=== PATIENT | female | born 1945 | race Caucasian/White ===

== ENCOUNTER 2018-03-14 11:05 | Inpatient (IN) | payer MEDICARE, OTHER ==
[2018-03-14 11:46] LABS: WHITE BLOOD COUNT 8.8 10^3/ul (4.8-10.8)
[2018-03-14 11:46] LABS: HEMATOCRIT 36.9 % (37.0-47.0); HEMOGLOBIN 11.3 g/dl (12.0-16.0); MEAN CORPUSCULAR HEMOGLOBIN 28.8 pg (29.0-33.0); MEAN CORPUSCULAR HGB CONC 30.6 g/dl (32.0-37.0); MEAN CORPUSCULAR VOLUME 93.9 fl (82.0-101.0); MEAN PLATELET VOLUME 10.8 fl (7.4-10.4); PLATELET COUNT 298 10^3/UL (140-415); POSITIVE DIFF @See below; RED BLOOD COUNT 3.93 10^6/ul (4.20-5.40); RED CELL DISTRIBUTION WIDTH 14.6 % (11.5-14.5)
[2018-03-14 11:47] LABS: ADD MAN DIFF? YES
[2018-03-14] MEDS: CEFTRIAXONE 1 GM/50 ML (PMX) 50 ML IVPB (11:49)
[2018-03-14] MEDS: DEXAMETHASONE 10 MG/ML 1 ML INJ IV (11:49)
[2018-03-14] MEDS: ALBUTEROL 0.083% (NEB) 2.5 MG/3 ML AMP INH (11:51)
[2018-03-14] MEDS: IPRATROPIUM (NEB) 0.5 MG/2.5 ML AMP INH (11:51)
[2018-03-14] MEDS: AZITHROMYCIN 500MG/NS (PMX) 250 ML IV (12:03)
[2018-03-14] MEDS: SODIUM CHLORIDE 0.9% 1L BAG IV* (12:04)
[2018-03-14 12:06] LABS: ALANINE AMINOTRANSFERASE 19 IU/L (13-69); ALBUMIN 3.7 g/dl (3.3-4.9); ALKALINE PHOSPHATASE 83 IU/L (42-121); ANION GAP 9 (5-13); ASPARTATE AMINO TRANSFERASE 29 IU/L (15-46); BILIRUBIN,INDIRECT 0.2 mg/dl (0-1.1); BILIRUBIN,TOTAL 0.2 mg/dl (0.2-1.3); BLOOD UREA NITROGEN 21 mg/dl (7-20); CALCIUM 8.8 mg/dl (8.4-10.2); CARBON DIOXIDE 34 mmol/L (21-31); CHLORIDE 98 mmol/L (97-110); GLUCOSE 97 mg/dl (70-220); POTASSIUM 3.9 mmol/L (3.5-5.1); SODIUM 141 mmol/L (135-144); TOTAL PROTEIN 7.8 g/dl (6.1-8.1)
[2018-03-14 12:07] LABS: PROTIME 12.2 Sec (11.9-14.9)
[2018-03-14 12:08] LABS: PARTIAL THROMBOPLASTIN TIME 24.7 Sec (23.0-35.0)
[2018-03-14 12:09] LABS: ANISOCYTOSIS 1+ (0-0); BASOPHIL #M 0.1 10^3/ul (0.0-0.0); BASOPHILS % (M) 2 % (0-2); EOSINOPHILS % (M) 1 % (0-7); ERYTHROBLAST% (NRBC) (M) 1 % (0-0); LYMPHOCYTES #M 1.9 10^3/ul (0.8-2.9); LYMPHOCYTES % (M) 22 % (15-51); MONOCYTE #M 0.8 10^3/ul (0.3-0.9); MONOCYTES % (M) 10 % (0-11); PLATELET ESTIMATE NORMAL; POLYCHROMASIA 2+ (0-0); SEGMENTED NEUTROPHILS (M) % 65 % (39-77); SMUDGE%M 28 % (0-0)
[2018-03-14 12:15] LABS: MODE MASK - NRB; MetHgb Venous 0.3 %; Sample Type Blood venous; Site VENOUS LINE; Venous COHb 6.7 %; Venous Fraction OxyHgb 57.3 %; Venous Oxygen Sat 61.6 mmHG (55.0-75.0); Venous Total Hemglobin 14.6 g/dl
[2018-03-14 12:17] LABS: B-TYPE NATRIURETIC PEPTIDE 1800 PG/ML (0-125); TROPONIN-I 0.022 ng/ml (0.000-0.120)
[2018-03-14] MEDS ORDERED: ONDANSETRON 4 MG INJ IV ×2 (13:00→14:00)
[2018-03-14] MEDS ORDERED: ACETAMINOPHEN 325 MG TAB PO ×2 (13:00→14:00)
[2018-03-14] MEDS ORDERED: NACL 0.9% 3 ML SYG IV (14:00)
[2018-03-14] MEDS: NICOTINE (21 MG/24 HR) PATCH TRANSDERM (15:30)
[2018-03-14] MEDS: predniSONE 20 MG TAB PO (15:44)
[2018-03-14] MEDS: FUROSEMIDE 40 MG INJ IV (17:48)
[2018-03-14 19:57] LABS: AADO2 Arterial 564.5 mmHg (7.0-24.0); Allen Test ACCEPTAB; Arterial Base Excess -1.5 mmol/L (-3.0-3); Arterial Blood Gas Oxygen Sat 90.9 mmHG (95.0-100.0); Arterial COHb 2.1 % (0.0-3.0); Arterial Fraction of Oxyhgb 88.8 % (93.0-99.0); Arterial HCO3 28.4 mmol/L (22.0-26.0); Arterial MetHb 0.2 % (0.0-1.5); Arterial pCO2 75.5 mmhg (35-45); MODE MASK - NRB; Site Right Radial
[2018-03-14] MEDS: ATORVASTATIN 10 MG TAB PO (21:06)
[2018-03-14] MEDS: RISPERIDONE 1 MG TAB PO (21:06)
[2018-03-14 23:41] LABS: AADO2 Arterial 388.3 mmHg (7.0-24.0); Allen Test ACCEPTAB; Arterial Base Excess 2.7 mmol/L (-3.0-3); Arterial Blood Gas Oxygen Sat 91.4 mmHG (95.0-100.0); Arterial COHb 1.3 % (0.0-3.0); Arterial Fraction of Oxyhgb 89.9 % (93.0-99.0); Arterial HCO3 31.9 mmol/L (22.0-26.0); Arterial MetHb 0.3 % (0.0-1.5); Arterial pCO2 74.3 mmhg (35-45); Blood Gas IEPAP 15/5; MODE MASK - BIPAP; Site Right Radial
[2018-03-15] MEDS: FUROSEMIDE 40 MG INJ IV ×2 (06:29→17:20)
[2018-03-15 07:13] LABS: HEMATOCRIT 35.4 % (37.0-47.0); HEMOGLOBIN 10.6 g/dl (12.0-16.0); MEAN CORPUSCULAR HEMOGLOBIN 28.6 pg (29.0-33.0); MEAN CORPUSCULAR HGB CONC 29.9 g/dl (32.0-37.0); MEAN CORPUSCULAR VOLUME 95.7 fl (82.0-101.0); MEAN PLATELET VOLUME 10.7 fl (7.4-10.4); PLATELET COUNT 273 10^3/UL (140-415); RED CELL DISTRIBUTION WIDTH 14.7 % (11.5-14.5)
[2018-03-15 07:15] LABS: ADD MAN DIFF? YES; POSITIVE DIFF @See below
[2018-03-15 07:47] LABS: ALANINE AMINOTRANSFERASE 27 IU/L (13-69); ALBUMIN 3.7 g/dl (3.3-4.9); ALBUMIN/GLOBULIN RATIO 1.08; ALKALINE PHOSPHATASE 75 IU/L (42-121); ANION GAP 9 (5-13); ASPARTATE AMINO TRANSFERASE 23 IU/L (15-46); BILIRUBIN,INDIRECT 0.1 mg/dl (0-1.1); BILIRUBIN,TOTAL 0.1 mg/dl (0.2-1.3); BLOOD UREA NITROGEN 25 mg/dl (7-20); CALCIUM 8.7 mg/dl (8.4-10.2); CARBON DIOXIDE 33 mmol/L (21-31); CHLORIDE 99 mmol/L (97-110); CHOL/HDL RATIO 2.6 RATIO; CHOLESTEROL 161 mg/dl (100-200); CREATININE 0.75 mg/dl (0.44-1.00); GLUCOSE 132 mg/dl (70-220); HDL CHOLESTEROL 61 mg/dl (33-92); LDL CHOLESTEROL,CALCULATED 89 mg/dl; MAGNESIUM 2.3 mg/dl (1.7-2.5); PHOSPHORUS 4.7 mg/dl (2.5-4.9); POTASSIUM 4.6 mmol/L (3.5-5.1); SODIUM 141 mmol/L (135-144); TOTAL PROTEIN 7.1 g/dl (6.1-8.1); TRIGLYCERIDES 55 mg/dl (0-149)
[2018-03-15 07:49] LABS: HEMOGLOBIN A1C 5.4 % (0-5.9)
[2018-03-15] MEDS: NICOTINE (21 MG/24 HR) PATCH TRANSDERM (09:00)
[2018-03-15] MEDS ORDERED: NON-FORMULARY/PATIENT OWN MED (Losartan-Hydrochlorothiazide (Losartan-HCTZ) 1 TAB) PO (09:00)
[2018-03-15 09:06] LABS: LYMPHOCYTES #M 0.8 10^3/ul (0.8-2.9); LYMPHOCYTES % (M) 11 % (15-51); MONOCYTE #M 0.5 10^3/ul (0.3-0.9); MONOCYTES % (M) 7 % (0-11); PLATELET ESTIMATE NORMAL; POLYCHROMASIA 2+ (0-0); REACTIVE LYMPHOCYTES #M 0.1 10^3/ul (0.0-0.0); REACTIVE LYMPHOCYTES% (M) 2 % (0-0); SEGMENTED NEUTROPHILS (M) % 80 % (39-77); SMUDGE%M 31 % (0-0)
[2018-03-15] MEDS: LOSARTAN 50 MG TAB PO (09:16)
[2018-03-15] MEDS: RISPERIDONE 1 MG TAB PO ×2 (09:17→21:52)
[2018-03-15] MEDS: HYDROCHLOROTHIAZIDE 12.5 MG CAP PO (09:17)
[2018-03-15] MEDS: AMLODIPINE 10 MG TAB PO (09:17)
[2018-03-15] MEDS: predniSONE 20 MG TAB PO (09:17)
[2018-03-15] MEDS: ENOXAPARIN 40 MG/0.4 ML SYG SC (09:34)
[2018-03-15] MEDS: ALBUTEROL/IPRATROPIUM (NEB) 3 ML AMP HHN ×4 (10:16→20:16)
[2018-03-15] MEDS: COLLAGENASE 5 GM (UD JAR) TOP (10:58)
[2018-03-15] MEDS: CEFTRIAXONE 1 GM/50 ML (PMX) 50 ML IVPB (10:59)
[2018-03-15] MEDS: AZITHROMYCIN 500MG/NS (PMX) 250 ML IVPB (11:49)
[2018-03-15 13:42] LABS: AADO2 Arterial 187.8 mmHg (7.0-24.0); Allen Test ACCEPTAB; Arterial Blood Gas Oxygen Sat 92.1 mmHG (95.0-100.0); Arterial COHb 0.6 % (0.0-3.0); Arterial Fraction of Oxyhgb 91.4 % (93.0-99.0); Arterial HCO3 29.9 mmol/L (22.0-26.0); Arterial MetHb 0.2 % (0.0-1.5); Arterial pCO2 56.6 mmhg (35-45); Blood Gas PS 20/5; MODE MASK - BIPAP; Site Right Brachial
[2018-03-15] MEDS: ATORVASTATIN 10 MG TAB PO (21:52)
[2018-03-16] MEDS: ALBUTEROL/IPRATROPIUM (NEB) 3 ML AMP HHN ×6 (01:33→20:00)
[2018-03-16] MEDS: FUROSEMIDE 40 MG INJ IV ×2 (05:53→18:00)
[2018-03-16] MEDS: LOSARTAN 50 MG TAB PO (08:37)
[2018-03-16] MEDS: predniSONE 20 MG TAB PO (08:37)
[2018-03-16] MEDS: AMLODIPINE 10 MG TAB PO (08:37)
[2018-03-16] MEDS: RISPERIDONE 1 MG TAB PO ×2 (08:38→20:18)
[2018-03-16] MEDS: COLLAGENASE 5 GM (UD JAR) TOP (08:38)
[2018-03-16] MEDS: HYDROCHLOROTHIAZIDE 12.5 MG CAP PO (08:38)
[2018-03-16] MEDS: NICOTINE (21 MG/24 HR) PATCH TRANSDERM (09:00)
[2018-03-16] MEDS: ENOXAPARIN 40 MG/0.4 ML SYG SC (09:04)
[2018-03-16 10:07] LABS: ADD MAN DIFF? NO
[2018-03-16 10:11] LABS: BASOPHIL # 0.1 10^3/ul (0.0-0.1); BASOPHILS % 0.4 % (0.0-2.0); EOSINOPHILS % 0.2 % (0.0-7.0); HEMATOCRIT 37.4 % (37.0-47.0); LYMPHOCYTES # 2.4 10^3/ul (0.8-2.9); LYMPHOCYTES % 20.2 % (15.0-51.0); MEAN CORPUSCULAR HEMOGLOBIN 28.5 pg (29.0-33.0); MEAN CORPUSCULAR HGB CONC 29.4 g/dl (32.0-37.0); MEAN CORPUSCULAR VOLUME 96.9 fl (82.0-101.0); MEAN PLATELET VOLUME 10.6 fl (7.4-10.4); MONOCYTE # 1.3 10^3/ul (0.3-0.9); MONOCYTES % 10.8 % (0.0-11.0); NEUTROPHIL # 8.1 10^3/ul (1.6-7.5); NEUTROPHILS % 68.1 % (39.0-77.0); PLATELET COUNT 294 10^3/UL (140-415); RED BLOOD COUNT 3.86 10^6/ul (4.20-5.40); RED CELL DISTRIBUTION WIDTH 14.7 % (11.5-14.5)
[2018-03-16 10:11] LABS: WHITE BLOOD COUNT 11.9 10^3/ul (4.8-10.8)
[2018-03-16] MEDS: ACETYLCYSTEINE 20% 4 ML VIAL NEB ×3 (10:30→19:59)
[2018-03-16 10:31] LABS: ALANINE AMINOTRANSFERASE 29 IU/L (13-69); ALBUMIN 3.7 g/dl (3.3-4.9); ALBUMIN/GLOBULIN RATIO 1.02; ALKALINE PHOSPHATASE 70 IU/L (42-121); ASPARTATE AMINO TRANSFERASE 27 IU/L (15-46); BILIRUBIN,INDIRECT 0.3 mg/dl (0-1.1); BILIRUBIN,TOTAL 0.3 mg/dl (0.2-1.3); BLOOD UREA NITROGEN 28 mg/dl (7-20); CALCIUM 8.9 mg/dl (8.4-10.2); CHLORIDE 93 mmol/L (97-110); CREATININE 0.77 mg/dl (0.44-1.00); GLUCOSE 129 mg/dl (70-220); SODIUM 141 mmol/L (135-144); TOTAL PROTEIN 7.3 g/dl (6.1-8.1)
[2018-03-16 10:37] LABS: ANION GAP 10 (5-13)
[2018-03-16 10:38] LABS: CARBON DIOXIDE 38 mmol/L (21-31)
[2018-03-16] MEDS: AZITHROMYCIN 500MG/NS (PMX) 250 ML IVPB (11:00)
[2018-03-16] MEDS: CEFTRIAXONE 1 GM/50 ML (PMX) 50 ML IVPB (11:00)
[2018-03-16] MEDS: ATORVASTATIN 10 MG TAB PO (20:18)
[2018-03-17] MEDS: ALBUTEROL/IPRATROPIUM (NEB) 3 ML AMP HHN ×4 (01:30→13:33)
[2018-03-17] MEDS: ACETYLCYSTEINE 20% 4 ML VIAL NEB ×4 (01:30→19:23)
[2018-03-17] MEDS: FUROSEMIDE 40 MG INJ IV ×2 (06:18→17:50)
[2018-03-17 06:51] LABS: ADD MAN DIFF? NO
[2018-03-17 06:58] LABS: BASOPHILS % 0.4 % (0.0-2.0); EOSINOPHILS # 0.1 10^3/ul (0.0-0.5); EOSINOPHILS % 0.6 % (0.0-7.0); HEMOGLOBIN 11.1 g/dl (12.0-16.0); LYMPHOCYTES # 2.3 10^3/ul (0.8-2.9); LYMPHOCYTES % 25.8 % (15.0-51.0); MEAN CORPUSCULAR HEMOGLOBIN 28.3 pg (29.0-33.0); MEAN CORPUSCULAR VOLUME 94.4 fl (82.0-101.0); MEAN PLATELET VOLUME 11.9 fl (7.4-10.4); MONOCYTE # 0.8 10^3/ul (0.3-0.9); MONOCYTES % 8.7 % (0.0-11.0); NEUTROPHIL # 5.7 10^3/ul (1.6-7.5); NEUTROPHILS % 63.9 % (39.0-77.0); PLATELET COUNT 240 10^3/UL (140-415); RED BLOOD COUNT 3.92 10^6/ul (4.20-5.40); RED CELL DISTRIBUTION WIDTH 14.7 % (11.5-14.5)
[2018-03-17 07:00] LABS: POSITIVE DIFF @See below
[2018-03-17 07:13] LABS: ANION GAP 8 (5-13); BLOOD UREA NITROGEN 25 mg/dl (7-20); CALCIUM 8.9 mg/dl (8.4-10.2); CARBON DIOXIDE 36 mmol/L (21-31); CHLORIDE 96 mmol/L (97-110); GLUCOSE 106 mg/dl (70-220); MAGNESIUM 2.2 mg/dl (1.7-2.5); PHOSPHORUS 3.8 mg/dl (2.5-4.9); POTASSIUM 4.4 mmol/L (3.5-5.1); SODIUM 140 mmol/L (135-144)
[2018-03-17] MEDS: HYDROCHLOROTHIAZIDE 12.5 MG CAP PO (10:33)
[2018-03-17] MEDS: CEFTRIAXONE 1 GM/50 ML (PMX) 50 ML IVPB (10:33)
[2018-03-17] MEDS: NICOTINE (21 MG/24 HR) PATCH TRANSDERM (10:33)
[2018-03-17] MEDS: predniSONE 20 MG TAB PO (10:34)
[2018-03-17] MEDS: RISPERIDONE 1 MG TAB PO ×2 (10:34→21:06)
[2018-03-17] MEDS: AMLODIPINE 10 MG TAB PO (10:34)
[2018-03-17] MEDS: LOSARTAN 50 MG TAB PO (10:35)
[2018-03-17] MEDS: ENOXAPARIN 40 MG/0.4 ML SYG SC (10:41)
[2018-03-17] MEDS: AZITHROMYCIN 500MG/NS (PMX) 250 ML IVPB (12:05)
[2018-03-17] MEDS: FLUTICASONE/VILANTEROL 200-25 INH DEVICE INH (17:44)
[2018-03-17] MEDS: NYSTATIN 30 GM POWDER BTL TOP (21:03)
[2018-03-17] MEDS: ATORVASTATIN 10 MG TAB PO (21:03)
[2018-03-17] MEDS: COLLAGENASE 5 GM (UD JAR) TOP (21:04)
[2018-03-18] MEDS: ACETYLCYSTEINE 20% 4 ML VIAL NEB ×4 (01:27→20:27)
[2018-03-18] MEDS: FUROSEMIDE 40 MG INJ IV ×2 (06:00→18:00)
[2018-03-18 06:10] LABS: ADD MAN DIFF? NO
[2018-03-18 06:11] LABS: WHITE BLOOD COUNT 8.9 10^3/ul (4.8-10.8)
[2018-03-18 06:11] LABS: BASOPHILS % 0.2 % (0.0-2.0); EOSINOPHILS # 0.1 10^3/ul (0.0-0.5); EOSINOPHILS % 0.8 % (0.0-7.0); HEMATOCRIT 35.8 % (37.0-47.0); HEMOGLOBIN 10.8 g/dl (12.0-16.0); LYMPHOCYTES # 2.5 10^3/ul (0.8-2.9); LYMPHOCYTES % 28.7 % (15.0-51.0); MEAN CORPUSCULAR HEMOGLOBIN 28.2 pg (29.0-33.0); MEAN CORPUSCULAR HGB CONC 30.2 g/dl (32.0-37.0); MEAN CORPUSCULAR VOLUME 93.5 fl (82.0-101.0); MEAN PLATELET VOLUME 10.6 fl (7.4-10.4); MONOCYTES % 10.9 % (0.0-11.0); NEUTROPHIL # 5.2 10^3/ul (1.6-7.5); NEUTROPHILS % 59.1 % (39.0-77.0); PLATELET COUNT 294 10^3/UL (140-415); RED BLOOD COUNT 3.83 10^6/ul (4.20-5.40); RED CELL DISTRIBUTION WIDTH 14.6 % (11.5-14.5)
[2018-03-18 07:12] LABS: ANION GAP 4 (5-13); BLOOD UREA NITROGEN 21 mg/dl (7-20); CALCIUM 8.7 mg/dl (8.4-10.2); CARBON DIOXIDE 34 mmol/L (21-31); CHLORIDE 99 mmol/L (97-110); CREATININE 0.69 mg/dl (0.44-1.00); GLUCOSE 131 mg/dl (70-220); POTASSIUM 4.3 mmol/L (3.5-5.1); SODIUM 137 mmol/L (135-144)
[2018-03-18] MEDS: FLUTICASONE/VILANTEROL 200-25 INH DEVICE INH (08:51)
[2018-03-18] MEDS: NICOTINE (21 MG/24 HR) PATCH TRANSDERM (08:51)
[2018-03-18] MEDS: RISPERIDONE 1 MG TAB PO ×2 (08:52→21:46)
[2018-03-18] MEDS: LOSARTAN 50 MG TAB PO (08:53)
[2018-03-18] MEDS: HYDROCHLOROTHIAZIDE 12.5 MG CAP PO (08:53)
[2018-03-18] MEDS: predniSONE 20 MG TAB PO (08:53)
[2018-03-18] MEDS: AMLODIPINE 10 MG TAB PO (08:53)
[2018-03-18] MEDS: ENOXAPARIN 40 MG/0.4 ML SYG SC (09:07)
[2018-03-18] MEDS: NYSTATIN 30 GM POWDER BTL TOP ×2 (09:08→21:52)
[2018-03-18] MEDS: COLLAGENASE 5 GM (UD JAR) TOP ×2 (09:08→21:46)
[2018-03-18] MEDS: AZITHROMYCIN 500MG/NS (PMX) 250 ML IVPB (11:28)
[2018-03-18] MEDS: CEFTRIAXONE 1 GM/50 ML (PMX) 50 ML IVPB (11:28)
[2018-03-18] MEDS: ALBUTEROL/IPRATROPIUM (NEB) 3 ML AMP NEB (20:26)
[2018-03-18] MEDS: ATORVASTATIN 10 MG TAB PO (21:46)
[2018-03-19] MEDS: ACETYLCYSTEINE 20% 4 ML VIAL NEB ×3 (01:36→14:58)
[2018-03-19] MEDS: ALBUTEROL/IPRATROPIUM (NEB) 3 ML AMP NEB ×3 (01:36→14:57)
[2018-03-19] MEDS: FUROSEMIDE 40 MG INJ IV (06:00)
[2018-03-19 06:09] LABS: ADD MAN DIFF? NO
[2018-03-19 06:16] LABS: BASOPHILS % 0.3 % (0.0-2.0); EOSINOPHILS % 0.4 % (0.0-7.0); HEMATOCRIT 34.9 % (37.0-47.0); HEMOGLOBIN 10.8 g/dl (12.0-16.0); LYMPHOCYTES # 2.5 10^3/ul (0.8-2.9); LYMPHOCYTES % 26.2 % (15.0-51.0); MEAN CORPUSCULAR HEMOGLOBIN 28.9 pg (29.0-33.0); MEAN CORPUSCULAR HGB CONC 30.9 g/dl (32.0-37.0); MEAN CORPUSCULAR VOLUME 93.3 fl (82.0-101.0); MEAN PLATELET VOLUME 10.5 fl (7.4-10.4); MONOCYTE # 0.9 10^3/ul (0.3-0.9); MONOCYTES % 9.4 % (0.0-11.0); NEUTROPHILS % 63.3 % (39.0-77.0); PLATELET COUNT 280 10^3/UL (140-415); RED BLOOD COUNT 3.74 10^6/ul (4.20-5.40); RED CELL DISTRIBUTION WIDTH 14.7 % (11.5-14.5)
[2018-03-19 06:16] LABS: WHITE BLOOD COUNT 9.5 10^3/ul (4.8-10.8)
[2018-03-19 06:58] LABS: ANION GAP 6 (5-13); BLOOD UREA NITROGEN 17 mg/dl (7-20); CALCIUM 9.1 mg/dl (8.4-10.2); CARBON DIOXIDE 35 mmol/L (21-31); CHLORIDE 96 mmol/L (97-110); CREATININE 0.64 mg/dl (0.44-1.00); GLUCOSE 107 mg/dl (70-220); PHOSPHORUS 4.3 mg/dl (2.5-4.9); POTASSIUM 4.2 mmol/L (3.5-5.1); SODIUM 137 mmol/L (135-144)
[2018-03-19] MEDS: NICOTINE (21 MG/24 HR) PATCH TRANSDERM (08:38)
[2018-03-19] MEDS: COLLAGENASE 5 GM (UD JAR) TOP (08:39)
[2018-03-19] MEDS: HYDROCHLOROTHIAZIDE 12.5 MG CAP PO (08:39)
[2018-03-19] MEDS: LOSARTAN 50 MG TAB PO (08:40)
[2018-03-19] MEDS: AMLODIPINE 10 MG TAB PO (08:40)
[2018-03-19] MEDS: RISPERIDONE 1 MG TAB PO (08:40)
[2018-03-19] MEDS: predniSONE 20 MG TAB PO (08:41)
[2018-03-19] MEDS: FLUTICASONE/VILANTEROL 200-25 INH DEVICE INH (08:42)
[2018-03-19] MEDS: NYSTATIN 30 GM POWDER BTL TOP (09:00)
[2018-03-19] MEDS: ENOXAPARIN 40 MG/0.4 ML SYG SC (09:00)
[2018-03-19] MEDS: AZITHROMYCIN 500MG/NS (PMX) 250 ML IVPB (11:00)
[2018-03-19] MEDS: CEFTRIAXONE 1 GM/50 ML (PMX) 50 ML IVPB (11:00)
== END 2018-03-19 18:20 | DRG 193 ==
LOC: E/R 11:05 → TEL 12:55
DX: J18.9 Pneumonia, unspecified organism (principal); J96.02 Acute respiratory failure with hypercapnia; J96.01 Acute respiratory failure with hypoxia; J44.1 Chronic obstructive pulmonary disease with (acute) exacerbation; I11.0 Hypertensive heart disease with heart failure; I50.9 Heart failure, unspecified; F17.200 Nicotine dependence, unspecified, uncomplicated; E78.5 Hyperlipidemia, unspecified
CPT/HCPCS: 36415; 36600; 71045; 80048; 80053; 80061; 82803; 83036; 83605; 83735; 83880; 84100; 84443; 84484; 85025; 85610; 85730; 87040; 87400; 93005; 94640; 94660; 94664; 96374; 96375; 97162; 97530; 99291-25